=== PATIENT | male | born 1995 | race Hispanic/Latino ===

== ENCOUNTER 2017-03-15 14:26 | Emergency (ER) | payer SELFPAY ==
--- NOTE | 2017-03-15 15:34 | RAD ---
THREE VIEWS RIGHT ANKLE: 03/15/17 HISTORY: Right ankle pain after falling ten feet from a ladder. FINDINGS: The ankle mortise is congruent. No fracture or dislocation is seen. mild subcutaneous soft tissue sw elling is seen at the lateral and anterior aspect of the ankle. IMPRESSION: Continued soft tissue swelling without evidence of a fracture. POS: [facility]
[2017-03-15] MEDS ORDERED: HYDROcodone/Acetaminophen 10/325 mg Tablet ONE (16:32)
--- NOTE | 2017-03-15 16:57 | RAD ---
RIGHT FOOT FOUR VIEWS: 03/15/17 HISTORY: Calcaneal pain. COMPARISON: None. FINDINGS: There is soft tissue swelling at the level of the hindfoot. No fracture. No cortical irregularity. N o periosteal reaction. Lisfranc alignment is maintained. The joint spaces are preserved. IMPRESSION: Hindfoot swelling. No fracture. POS: [facility]
--- NOTE | 2017-03-19 13:38 | RAD ---
RIGHT FOOT FOUR VIEWS: 03/15/17 HISTORY: Calcaneal pain. COMPARISON: None. FINDINGS: There is soft tissue swelling at the level of the hindfoot. No fracture. No cortical irregularity. N o periosteal reaction. Lisfranc alignment is maintained. The joint spaces are preserved. IMPRESSION: Hindfoot swelling. No fracture.
== END 2017-03-15 17:41 | disposition home or self-care (01) ==
LOC: ERS 14:26
DX: S86.011A Strain of right Achilles tendon, initial encounter (principal); S93.401A Sprain of unspecified ligament of right ankle, initial encounter; W11.XXXA Fall on and from ladder, initial encounter